=== PATIENT | female | born 1945 | race African-American/Black ===

== ENCOUNTER 2021-07-04 07:32 | Emergency (ER) | payer OTHER ==
[~2021-07-04] VITALS: Ht 160 cm; Wt 104.3 kg
[2021-07-04 07:34] VITALS: BP 189/81
== END 2021-07-04 08:39 | disposition left against medical advice (07) ==
LOC: ER 07:32
DX: R06.02 Shortness of breath (principal); Z53.21 Procedure and treatment not carried out due to patient leaving prior to being seen by health care provider
CPT/HCPCS: 93005